=== PATIENT | male | born 1945 | race Caucasian/White ===

== ENCOUNTER 2019-01-11 05:29 | Day surgery (SDC) | payer OTHER ==
[~2019-01-11] VITALS: Ht 177.8 cm; Wt 72.3 kg
[2019-01-11] MEDS ORDERED: HUMULIN 70100 UNIT/1 SC ×3 (06:11→06:19)
[2019-01-11] MEDS ORDERED: NEURONTIN600 MG PO (06:12)
[2019-01-11] MEDS ORDERED: COUMADIN2 MG PO (06:12)
[2019-01-11] MEDS ORDERED: ADVAIR 250/501 DISK INH (06:13)
[2019-01-11] MEDS ORDERED: LIPITOR40 MG PO (06:13)
[2019-01-11] MEDS ORDERED: PREDNISONE5 MG PO (06:14)
[2019-01-11] MEDS ORDERED: XOPENEX HFA15 GM INH (06:15)
[2019-01-11] MEDS ORDERED: HUMULIN R100 U/ML SC (06:15)
[2019-01-11] MEDS ORDERED: ALBUTEROL0.63 MG/3 INH (06:16)
[2019-01-11] MEDS ORDERED: SINGULAIR10 MG PO (06:16)
[2019-01-11] MEDS ORDERED: OXYBUTYNIN CHLOR5 MG PO (06:17)
[2019-01-11] MEDS ORDERED: NAPROSYN500 MG PO (06:17)
[2019-01-11] MEDS ORDERED: ISOSORBIDE DINI30 MG PO (06:18)
[2019-01-11] MEDS ORDERED: NITROSTAT0.4 MG SL (06:18)
[2019-01-11 06:26] VITALS: Ht 177.8 cm; Wt 72.3 kg
[2019-01-11 07:05] LABS: APTT 43.1 SECONDS (22.8-39.4); INR 1.91 (0.85-1.17); PROTIME 21.2 SECONDS (11.6-15.0)
[2019-01-11 07:10] LABS: HEMATOCRIT 39.4 % (42.0-54.0); MCH 29.5 pg (26.0-34.0); MCV 89.5 fL (80.0-100.0); MEAN PLATELET VOLUME 9.5 fL (7.4-10.4); RBC 4.4 10x6/uL (4.20-6.10); RDW 12.9 % (11.5-14.5); WBC 10.2 10x3/uL (4.8-10.8)
[2019-01-11 07:24] LABS: ANION GAP 12.7 mmol/L (8-16); CALCIUM 8.7 mg/dL (8.5-10.1); CREATININE - SERUM 1.1 mg/dL (0.6-1.3); POTASSIUM - SERUM 3.7 mmol/L (3.5-5.1)
--- NOTE | 2019-01-11 10:20 | NUR ---
0976 ON RETURN TO ROOM 2520 REPORT RECEIVED. Ana WATSON R.N. STATES SHE FOUND A PACKAGED RAZOR UNDER THE PATIENT'S RIGHT HAND IN BED. SUPERVISER, Phill BRAUN R.N. & [facility] GUARD DONNA PANTOJA NOTIFIED. Nena FARNSWORTH R.N.
--- NOTE | 2019-01-11 10:30 | HP ---
PATIENT: AMRITA ELIZABETH MEDICAL RECORD: [id number] ACCOUNT: [id number] LOCATION:[facility] : 49 ADMISSION DATE: 01/11/19 PCP: CARMEN DAVIS MD HISTORY AND PHYSICAL EXAMINATION CHIEF COMPLAINT: Dysphagia. HISTORY OF PRESENT ILLNESS: The patient has dysphagia to liquids as well as to solids and pills. No pain with swallowing. No epigastric pain. I noted no supraclavicular or clavicular lymph nodes. The patient does have mild dementia. He states that he lost a couple of pounds. PAST MEDICAL AND SURGICAL HISTORY: Hypertension, diabetes mellitus, history of CVA back in 2001 with a residual left-sided weakness, venous stasis, mild dementia, tachybrady syndrome, paroxysmal atrial fibrillation, mild diabetic retinopathy, neurogenic bladder. SOCIAL HISTORY: Ex-smoker. HOME MEDICATIONS: Please see the nursing list. ALLERGIES: TO PENICILLIN WELL METFORMIN. PHYSICAL EXAMINATION: GENERAL: The patient does not appear acutely ill. He does appear chronically ill. HEAD: External ears appear normal. EYES: Extraocular movements are intact. NECK: Trachea is midline. CHEST: No intercostal retractions. PULMONARY: Nonlabored. IMPRESSION: Dysphagia. PLAN: EGD with esophageal dilation. TRANSINT:[id number] Voice Confirmation ID: [id number] DOCUMENT ID: [id number] CC: JOSE DE JESUS Pacheco ROBERT MD at 1030 CC: [id number] DICTATION DATE: 01/11/19 0837 [place] WRITER: 01/11/19 0852 [facility] [address] [place] [address]
--- NOTE | 2019-01-11 10:31 | NUR ---
1030IV COMPLETED & DC'ED WITH CATH INTACT. Nena FARNSWORTH R.N.
--- NOTE | 2019-01-11 11:55 | NUR ---
1057 AWAKE & ALERT. RETAINED FULL LIQUID DIET WITHOUT EMESIS OR COMPLAINTS OF NAUSEA. DRESSED & IN WHEELCHAIR PER ASSISTANCE OF ADC GUARDS. DISCHARGE INFORMATION REVIEWED WITH PATIENT, INCLUDING: MED REC., SHEET LISTING NSAIDS TO AVOID, [facility] POST ENDOSCOPY D/C INSTRUCTIONS WITH SPECIFIC NOTE FROM ORDER: MAY RESUME COIUMADIN RIGHT AWAY. COPIES OF LAB, H & P, OP NOTE & POST OP NOTE MADE & SENT BACK WITH PT TO [facility]. RELEASED FROM OPS WITH PT.'S WHEELCHAIR ACCOMPANIED BY ADC GUARD. Nena FARNSWORTH R.N.
--- NOTE | 2019-01-11 18:54 | OP ---
PATIENT NAME: MITCH ELIZABETH MEDICAL RECORD: [id number] :49 LOCATION:D.OPS ADMISSION DATE: SURGEON: MITCH MARINELLI MD DATE OF OPERATION: 01/11/2019 PREOPERATIVE DIAGNOSIS: Dysphagia. POSTOPERATIVE DIAGNOSES: 1. Dysphagia. 2. Gastric erosions. 3. Panesophagitis. PROCEDURES: 1. Esophagogastroduodenoscopy with antral and mid esophageal biopsies. 2. Esophageal dilation with a ygdxibp-czb-smvvnifb balloon to 60-[place] Lucian. SURGEON: Mitch Marinelli MD COST ANALYST: None. BLOOD LOSS: Minimal. ANESTHESIA: IV sedation. COMPLICATIONS: None. The risks, possible complications, and alternatives to the procedure were explained to the patient. He elects to proceed. ENDOSCOPIC COURSE: The patient was conveyed to the endoscopy suite electively on 01/11/2019. IV sedation was induced by the anesthesia staff. A bite block was inserted. A gastroscope was inserted into the mouth. It was advanced easily into the hypopharynx. The esophagus was easily intubated as were the stomach and duodenum. Antral biopsies were obtained. These biopsy sites were then cauterized as the patient has been on Coumadin lately. I then withdrew into the cardia of the stomach. I advanced a through the catheter balloon. I then sequentially dilated the esophagus to 60-[place] Lucian. I then re-endoscoped the patient's esophagus and stomach. There had been no false passage or perforation. The mid esophageal biopsies were obtained and here again these were hot biopsies as I do not want the patient to have postoperative bleeding. The endoscope was then withdrawn under direct vision. My recommendation is that the patient be placed on a proton pump inhibitor and/or have the Naprosyn discontinued. There is no need for the patient to follow up with me in the office unless he develops a complication related to this operative procedure. [facility] can see him at the [facility] on rounds if necessary. The panesophagitis could account for the patient's dysphagia. The PPI will be beneficial for the patient's antral erosions as well. TRANSINT:[id number] Voice Confirmation ID: [id number] DOCUMENT ID: [id number] OPERATIVE REPORT [id number] MITCH ELIZABETH ROBERT MD at 8487 CC: [place] [id number] DICTATION DATE: 01/11/19 0947 DIRECTOR OPERATIONS: 01/11/19 1039 [facility] [place] 01/11/19 [facility] [address] [place] [address]
== END 2019-01-11 10:57 ==
LOC: D.OPS 05:29
PROVIDERS: Anesthesiology; ATTEND Surgery
DX: R13.10 Dysphagia, unspecified (principal); K25.9 Gastric ulcer, unspecified as acute or chronic, without hemorrhage or perforation; K20.9 Esophagitis, unspecified; Z01.812 Encounter for preprocedural laboratory examination